=== PATIENT | female | born 1985 | race Hispanic/Latino ===

== ENCOUNTER 2017-09-13 09:36 | Emergency (ER) | payer OTHER ==
[~2017-09-13] VITALS: Ht 162.6 cm; Wt 86.2 kg
== END 2017-09-13 10:39 | disposition home or self-care (01) ==
LOC: ER 09:36
DX: Z48.01 Encounter for change or removal of surgical wound dressing (principal); T81.32XA Disruption of internal operation (surgical) wound, not elsewhere classified, initial encounter
CPT/HCPCS: 99283